=== PATIENT | male | born 1955 | race African-American/Black ===

== ENCOUNTER 2017-04-19 18:22 | Emergency (ER) | payer OTHER ==
[2017-04-19 18:33] VITALS: BP 143/83
--- NOTE | 2017-04-19 19:06 | ER Document Report ---
ED Skin Rash/Insect Bite/Abscs - General Chief Complaint: Insect Bite Stated Complaint: POSSIBLE BUG BITE Time Seen by Provider: 04/19/17 18:49 Notes: 61 yo male c/o possible tick head embedded in posterior right thigh. pt unsure of how long tick was embedded. scratched at tick last night and removed the body, unsure if head still embedded in skin. pt feels well. no fever or flu like symptoms. TRAVEL OUTSIDE OF THE [place] IN LAST 30 DAYS: No - HPI Patient complains to provider of: Tick bite Onset: Yesterday Quality of pain: No pain - Related Data Allergies/Adverse Reactions: No Known Allergies Allergy (Verified 03/17/13 17:48) Past Medical History - General Information source: Patient - Social History Smoking Status: Current Some Day Smoker Chew tobacco use (# tins/day): No Frequency of alcohol use: None Drug Abuse: None Lives with: Family Family History: Reviewed & Not Pertinent, CVA, DM Renal/ Medical History: Denies: Hx Peritoneal Dialysis Musculoskeltal Medical History: Reports Hx Arthritis Past Surgical History: Reports: Hx Tonsillectomy - Immunizations Hx Diphtheria, Pertussis, Tetanus Vaccination: Yes Review of Systems - Review of Systems Constitutional: No symptoms reported EENT: No symptoms reported Cardiovascular: No symptoms reported Respiratory: No symptoms reported Gastrointestinal: No symptoms reported Genitourinary: No symptoms reported Male Genitourinary: No symptoms reported Musculoskeletal: No symptoms reported Skin: See HPI Hematologic/Lymphatic: No symptoms reported Neurological/Psychological: No symptoms reported Physical Exam - Vital signs Vitals: Temp Pulse Resp BP Pulse Ox 98.9 F 89 15 143/83 H 99 04/19/17 18:30 04/19/17 18:30 04/19/17 18:30 04/19/17 18:30 04/19/17 18:30 Interpretation: Normal - General General appearance: Appears well, Alert - HEENT Head: Normocephalic, Atraumatic Eyes: Normal Pupils: PERRL - Respiratory Respiratory status: No respiratory distress Chest status: Nontender Breath sounds: Normal Chest palpation: Normal - Cardiovascular Rhythm: Regular Heart sounds: Normal auscultation Murmur: No - Abdominal Inspection: Normal Distension: No distension Bowel sounds: Normal Tenderness: Nontender Organomegaly: No organomegaly - Back Back: Normal, Nontender - Extremities General upper extremity: Normal inspection, Nontender, Normal color, Normal ROM , Normal temperature General lower extremity: Normal inspection, Nontender, Normal color, Normal ROM , Normal temperature, Normal weight bearing. No: Huber's sign - Neurological Neuro grossly intact: Yes Cognition: Normal Orientation: AAOx4 Manuel Coma Scale Eye Opening: Spontaneous [place] Coma Scale Verbal: Oriented [place] Coma Scale Motor: Obeys Commands [place] Coma Scale Total: 15 Speech: Normal Motor strength normal: LUE, RUE, LLE, RLE Sensory: Normal - Psychological Associated symptoms: Normal affect, Normal mood - Skin Skin Temperature: Warm Skin Moisture: Dry Skin Color: Normal Skin irregularity: Tender indurated area - .5 cm slightly indurated area to right guteal fold. area examined with optivisor glasses and no obvious embedded tick or tick parts identified. area explored with 18g needle. again, no obvious foreign body identified Course - Re-evaluation Re-evalutation: 04/19/17 19:09 I was unable to identify any embedded tick parts. will treat with short course of keflex. pt instructed to f/u with pcm for any signs of infection. pt is afebrile, nontoxic. stable for discharge and agreeable with plan - Vital Signs Vital signs: Temp Pulse Resp BP Pulse Ox 98.9 F 89 15 143/83 H 99 04/19/17 18:30 04/19/17 18:30 04/19/17 18:30 04/19/17 18:30 04/19/17 18:30 Discharge - Discharge Clinical Impression: Tick bite of buttock Qualifiers: Encounter type: initial encounter Qualified Code(s): S30.860A - Insect bite ( nonvenomous) of lower back and pelvis, initial encounter; W57.XXXA - Bitten or stung by nonvenomous insect and other nonvenomous arthropods, initial encounter ; W57.XXXA - Bitten or stung by nonvenomous insect and other nonvenomous arthropods, initial encounter Condition: Stable Disposition: HOME, SELF-CARE Instructions: Tick Bites ([facility]), Antibiotic Therapy ([facility]), Soap Cleansing ([facility]) Additional Instructions: clean area daily with antibacterial soap and water apply bacitracin and bandaid after cleaning oral antibiotic as prescribed follow up with primary care as needed Prescriptions: Cephalexin Monohydrate [Keflex 500 mg Capsule] 500 mg PO QID #20 capsule Ibuprofen [Motrin 800 Mg Tablet] 800 mg PO Q6H #20 tablet
== END 2017-04-19 19:15 | disposition home or self-care (01) ==
LOC: ER 18:22
DX: S30.860A Insect bite (nonvenomous) of lower back and pelvis, initial encounter (principal); W57.XXXA Bitten or stung by nonvenomous insect and other nonvenomous arthropods, initial encounter; F17.200 Nicotine dependence, unspecified, uncomplicated
CPT/HCPCS: 99281

== ENCOUNTER 2017-04-28 23:42 | Emergency (ER) | payer OTHER ==
[2017-04-28] MEDS ORDERED: PANTOPRAZOLE SODIUM 40 MG VIAL IV ONE (23:56)
[2017-04-28] MEDS ORDERED: NORMAL SALINE 500 ML with OCTREOTIDE ACETATE 500 MCG IV PRN ×2 (23:57)
[2017-04-29] MEDS ORDERED: OCTREOTIDE ACETATE INJ/PF 100 MCG/1 ML SDV IV ONE
--- NOTE | 2017-04-29 00:01 | ER Document Report ---
ED General - General Stated Complaint: VOMITING Time Seen by Provider: 04/28/17 23:49 Notes: Patient is 61-year-old male presents with complaint of vomiting blood. He does drink alcohol 3-4 times a week. He did drink tonight. Last night he started to notice black stools. He denies previous history of vomiting blood. He denies a known history of end-stage liver disease. He does not take any blood thinning medications. He has no other complaints at this time. TRAVEL OUTSIDE OF THE [place] IN LAST 30 DAYS: No - Related Data Allergies/Adverse Reactions: No Known Allergies Allergy (Verified 03/17/13 17:48) Past Medical History - Social History Smoking Status: Current Every Day Smoker Frequency of alcohol use: Occasional Drug Abuse: None Family History: Reviewed & Not Pertinent, CVA, DM Renal/ Medical History: Denies: Hx Peritoneal Dialysis Musculoskeltal Medical History: Reports Hx Arthritis Past Surgical History: Reports: Hx Tonsillectomy - Immunizations Hx Diphtheria, Pertussis, Tetanus Vaccination: Yes Review of Systems - Review of Systems Notes: My Normal Review Basic REVIEW OF SYSTEMS: CONSTITUTIONAL : Denies fever, chills, or sweats. Denies recent illness. RESPIRATORY: Denies cough, cold, or chest congestion. Denies shortness of breath, difficulty breathing, or wheezing. GASTROINTESTINAL: Epigastric abdominal pain. Vomiting of blood. Like stools. GENITOURINARY: Denies difficulty urinating, painful urination, burning, frequency, or blood in urine. MUSCULOSKELETAL: Denies neck or back pain or joint pain or swelling. SKIN: Denies rash or skin lesions. HEMATOLOGIC : Denies easy bruising or bleeding. NEUROLOGICAL: Denies altered mental status or loss of consciousness. Denies headache. Denies weakness or paralysis or loss of use of either side. Denies problems with gait or speech. Denies sensory or motor loss. ALL OTHER SYSTEMS REVIEWED AND NEGATIVE. Physical Exam - Vital signs Vitals: Resp BP Pulse Ox 20 115/60 97 04/28/17 23:48 04/28/17 23:48 04/28/17 23:48 - Notes Notes: General Appearance: Well nourished, alert, cooperative, no acute distress, no obvious discomfort. Vitals: reviewed, See vital signs table. Head: no swelling or tenderness to the head Eyes: PERRL, EOMI, Conjuctiva clear Mouth: No decreasd moisture. Her blood around lips from vomiting blood. Throat: No tonsillar inflammation, No airway obstruction, No lymphadenopathy Lungs: No wheezing, No rales, No rhonci, No accessory muscle use, good air exchange bilaterally. Heart: Normal rate, Regular rythm, No murmur, no rub Abdomen: Normal BS, soft, No rigidity, mild epigastric abdominal tenderness to palpation, No guarding, no rebound, no abdominal masses, no organomegaly Extremities: strength 5/5 in all extremities, good pulses in all extremities, no swelling or tenderness in the extremities, no edema. Skin: warm, dry, appropriate color, no rash Neuro: speech clear, oriented x 3, normal affect, responds appropriately to questions. Course - Re-evaluation Re-evalutation: 04/29/17 01:09 Patient is still actively having some hematemesis. Labs have returned. Patient does have some evidence of alcoholic liver disease and INR of 1.3. I have given him with octreotide as well as Protonix. I have discussed with the patient option of transferring. I informed him that I recommend transferring to have no GI coverage here and would be unable to appropriately treat him. He agrees with this. He requests that we call [facility]. I will call [facility] to talk to them about potential transfer. 04/29/17 04:30 Patient had several more episodes of vomiting blood. His vital signs have remained stable despite this. He is receiving blood transfusion. Because of his recurrent hematemesis as well as potential for esophageal varices but there is appropriate to follow him via helicopter aches otherwise [facility] transport was directed to be an hour from 8-10 hours before we can transport him by ground. My concern was that he could have worsening bleeding and we do not have GI here to scope him and potentially band him if that was to occur therefore there transport is more appropriate. I did discuss this with the patient is and they are agreeable to this. Transport has been arranged and they have now just arrived. I did reevaluate the patient he is doing well. Currently still some mild nausea but has not vomited the last 45 minutes. Vital signs remained stable. He is receiving blood. Patient is stable for transport. Dictation of this chart was performed using voice recognition software; therefore, there may be some unintended grammatical errors. - Vital Signs Vital signs: Temp Pulse Resp BP Pulse Ox 99.0 F 19 126/66 H 100 04/29/17 04:26 04/29/17 04:10 04/29/17 04:10 04/29/17 04:10 - Laboratory Result Diagrams: 04/28/17 23:46 04/28/17 23:46 Laboratory results interpreted by me: 04/28/17 04/28/17 04/28/17 23:46 23:46 23:46 RBC 3.52 L Hgb 8.3 L Hct 25.6 L MCV 73 L MCH 23.5 L RDW 19.5 H Monocytes % 16.2 H Absolute Monocytes 1.6 H PT 17.0 H Sodium 145.2 H Total Bilirubin 2.3 H Direct Bilirubin 1.6 H AST 245 H ALT 79 H Albumin 2.8 L Lipase 404.3 H Crossmatch 04/28/17 23:46 RBC Hgb Hct MCV MCH RDW Monocytes % Absolute Monocytes PT Sodium Total Bilirubin Direct Bilirubin AST ALT Albumin Lipase Crossmatch See Detail - EKG Interpretation by Me Additional EKG results interpreted by me: 04/29/17 00:01 EKG is reviewed and interpreted by me. EKG shows normal sinus rhythm with rate of [address] segment elevation or depression. No ischemic T-wave inversions. NE interval, QRS duration are within normal range. QT interval slightly prolonged. Old EKG for comparison is from February 15, 2016. Critical Care Note - Critical Care Note Total time excluding time spent on procedures (mins): 40 Comments: Critical care time for this patient not including time spent on procedures approximately 40 minutes due to frequent re-evaluations, management of upper GI bleed, discussion with transferring hospitalist. Dictation of this chart was performed using voice recognition software; therefore, there may be some unintended grammatical errors.
[2017-04-29 00:04] LABS: ABSOLUTE EOSINOPHILS # (AUTO) 0.1 10^3/uL (0.0-0.6); ABSOLUTE MONOCYTES (AUTO) 1.6 10^3/uL (0.1-1.4); ABSOLUTE NEUT (AUTO) 5.3 10^3/uL (1.7-8.2); BASOPHILS % (AUTO) 0.2 % (0-2); EOSINOPHILS % (AUTO) 0.5 % (0-6); HEMATOCRIT 25.6 % (37.9-51.0); HEMOGLOBIN 8.3 g/dL (13.5-17.0); HGB HCT DIFFERENCE -0.7; LYMPHOCYTES % (AUTO) 30.3 % (13-45); MEAN CORPUSCULAR HEMOGLOBIN 23.5 pg (27.0-33.4); MEAN CORPUSCULAR HGB CONC 32.4 g/dL (32.0-36.0); MEAN CORPUSCULAR VOLUME 73 fl (80-97); MONOCYTES % (AUTO) 16.2 % (3-13); RED BLOOD COUNT 3.52 10^6/uL (4.35-5.55); RED CELL DISTRIBUTION WIDTH 19.5 % (11.5-14.0); SEGMENTED NEUTROPHILS % (AUTO) 52.8 % (42-78)
[2017-04-29 00:11] LABS: PARTIAL THROMBOPLASTIN TIME 27.5 SEC (23.5-35.8)
[2017-04-29 00:19] LABS: ALANINE AMINOTRANSFERASE 79 U/L (21-72); ALBUMIN 2.8 g/dL (3.5-5.0); ALKALINE PHOSPHATASE 82 U/L (38-126); ASPARTATE AMINO TRANSFERASE 245 U/L (17-59); BILIRUBIN,DIRECT 1.6 mg/dL (0.0-0.4); BILIRUBIN,TOTAL 2.3 mg/dL (0.2-1.3); BLOOD UREA NITROGEN 19 mg/dL (7-20); CALCIUM 8.5 mg/dL (8.4-10.2); GLUCOSE 82 mg/dL (75-110); LIPASE 404.3 U/L (23-300); TOTAL PROTEIN 6.6 g/dL (6.3-8.2)
[2017-04-29] MEDS: PANTOPRAZOLE SODIUM 40 MG VIAL IV PRN ×2 (00:26→00:28)
[2017-04-29 00:30] LABS: ANION GAP 19 (5-19)
[2017-04-29 00:40] LABS: CARBON DIOXIDE 22 mmol/L (22-30); CHLORIDE 104 mmol/L (98-107); POTASSIUM 3.9 mmol/L (3.6-5.0); SODIUM 145.2 mmol/L (137-145)
[2017-04-29] MEDS ORDERED: ONDANSETRON HCL INJ/PF 4 MG/2 ML SDV IV ONE (01:02)
[2017-04-29] MEDS ORDERED: NORMAL SALINE 250 ML IV PRN (01:02)
[2017-04-29] MEDS ORDERED: PROMETHAZINE HCL INJ 25 MG/1 ML VIAL IM ONE (01:41)
--- NOTE | 2017-04-29 02:13 | RADIOLOGY REPORT (SQ) ---
EXAM DESCRIPTION: CHEST SINGLE VIEW COMPLETED DATE/TIME: 04/29/2017 2:02 am REASON FOR STUDY: vomiting blood, get full diaphragm in xray COMPARISON: Chest x-ray 05/11/2016. EXAM PARAMETERS: NUMBER OF VIEWS: One view. TECHNIQUE: Single frontal radiographic view of the chest acquired. RADIATION DOSE: NA LIMITATIONS: None. FINDINGS: LUNGS AND PLEURA: No consolidation, pneumothorax or pleural effusion. MEDIASTINUM AND HILAR STRUCTURES: No masses. Contour normal. HEART AND VASCULAR STRUCTURES: Heart normal in size. Normal vasculature. BONES: No acute findings. HARDWARE: None in the chest. IMPRESSION: No acute radiographic finding in the chest. TECHNICAL DOCUMENTATION: JOB ID: [id number]
[2017-04-29 04:14] VITALS: BP 126/66
--- NOTE | 2017-04-29 10:40 | EKG REPORT ---
SEVERITY:- ABNORMAL ECG - SINUS RHYTHM PROLONGED QT INTERVAL : Confirmed by: Glenis Sena MD 29-Apr-2017 10:40:13
== END 2017-04-29 04:50 | disposition short-term general hospital (02) ==
LOC: ER 23:42
DX: K92.2 Gastrointestinal hemorrhage, unspecified (principal); R11.10 Vomiting, unspecified; F17.200 Nicotine dependence, unspecified, uncomplicated
CPT/HCPCS: 93005; 99291; 96372; 96375; 96365; 96366; 86900; 86901; 36415; 36430; 86850; 83690; 85025; 85610; 85730; 80053; 86920; 71010; 93010; P9016; J2354; S0164; J2550; J2405

== ENCOUNTER → 2018-06-27 | Outpatient (CLI) | payer OTHER ==
--- NOTE | 2018-06-27 09:19 | RADIOLOGY REPORT (SQ) ---
EXAM DESCRIPTION: MRI LUMBAR SPINE WITHOUT COMPLETED DATE/TIME: 06/27/2018 8:58 am REASON FOR STUDY: LOW BACK PAIN (M54.5) COMPARISON: None. TECHNIQUE: Sagittal and Axial imaging includes T1, T2, STIR and gradient echo sequences. Coronal T2/ HASTE imaging. LIMITATIONS: None. FINDINGS: VISUALIZED UPPER ABDOMEN: Limited evaluation. No acute or suspicious findings suggested. SEGMENTATION: No transitional anatomy. The lowest well-developed disc space is labeled L5-S1. ALIGNMENT: Slight scoliotic curve. No listhesis. VERTEBRAE: Intact. BONE MARROW: Normal. No marrow replacement or reactive changes. DISC SIGNAL: Mild disc disease of associated signal and height loss, particularly L3-4 and L4-5. POSTERIOR ELEMENTS: No pars defect evident. Fairly mild facet arthropathy without bulky degenerativ e overgrowth. HARDWARE: None in the spine. CORD AND CONUS: Normal in size and signal intensity. Conus at the appropriate level. SOFT TISSUES: No aortic aneurysm seen. No bulky retroperitoneal adenopathy or mass. No paraspinal mas s or fluid. L1-L2: No significant spinal stenosis or exit foraminal stenosis. L2-L3: No significant spinal stenosis or exit foraminal stenosis. L3-L4: Disc bulge mildly flattens the ventral thecal sac. Central annular fissure. Mild facet disea se with posterior ligament thickening. Slight encroachment with lateral recess narrowing. Brought e ccentric left lateral disc bulge with moderate left foraminal stenosis. L4-L5: Posterior ligament thickening. Mild disc bulge. Mild central stenosis. Moderate bilateral f oraminal narrowing. L5-S1: Mild foraminal narrowing. LOWER THORACIC: Incompletely imaged. No stenosis seen. SACRUM: Visualized upper sacrum intact. OTHER: No other significant findings. IMPRESSION: 1. Lumbar spondylosis. Fairly mild central narrowing L3-4 and L4-5. Detailed as above. TECHNICAL DOCUMENTATION: JOB ID: [id number] [employer]- All Rights Reserved Reading location - IP/workstation name: [email or web address]
--- NOTE | 2018-06-27 09:23 | RADIOLOGY REPORT (SQ) ---
EXAM DESCRIPTION: MRI CERVICAL SPINE WITHOUT COMPLETED DATE/TIME: 06/27/2018 8:58 am REASON FOR STUDY: CERVICAL RADICULOPATHY (M54.12) COMPARISON: None. TECHNIQUE: Sagittal and Axial imaging includes T1, T2, STIR and gradient echo sequences. LIMITATIONS: None. FINDINGS: ALIGNMENT: Normal. VERTEBRAE: Intact. BONE MARROW: No marrow edema. No fracture. DISCS: Disc disease at C5-6 and C6-7 particularly. Height and signal loss with disc osteophyte compl exes. HARDWARE: None in the spine. CORD AND BASE OF BRAIN: Normal in size and signal intensity. SOFT TISSUES: No soft tissue masses. C1-C2: No significant spinal stenosis. C2-C3: No significant spinal stenosis or exit foraminal stenosis. C3-C4: No significant spinal stenosis or exit foraminal stenosis. C4-C5: No significant spinal stenosis or exit foraminal stenosis. C5-C6: Disc osteophyte complex effaces the anterior CSF space and contacts the cord without mass effe ct. Uncovertebral spurring with bilateral foraminal stenosis, left greater than right. This looks m oderate -marked overall. C6-C7: Disc osteophyte complex without mass effect on the cord. At least moderate bilateral foramina l stenosis. C7-T1: Broad central minimal protrusion without mass effect on the cord. Bilateral foraminal stenosi s is grossly moderate. UPPER THORACIC: Spondylosis without cord compression. OTHER: No other significant finding. IMPRESSION: 1. Cervical spondylosis which looks most pronounced at C5-6 and C6-7. No miky cord com pression or high-grade central stenosis. TECHNICAL DOCUMENTATION: JOB ID: [id number] [employer]- All Rights Reserved Reading location - IP/workstation name: [email or web address]
== END ==
LOC: RAD 07:25
PROVIDERS: ATTEND Family Medicine
DX: M54.5 Low back pain (principal); M54.12 Radiculopathy, cervical region
CPT/HCPCS: 72141; 72148

== ENCOUNTER 2018-08-06 08:14 | Day surgery (SDC) | payer OTHER ==
[~2018-08-06 08:14] MED LIST: PROPOFOL INJ 200 MG/20 ML VIAL IV ONE
[2018-08-06 10:18] VITALS: BP 157/88
--- NOTE | 2018-08-06 12:50 | Operative Report ---
Operative Report DATE OF SURGERY: 08/06/18 Operative Report: The risks, benefits and alternatives of the procedure including the risk of bleeding, perforation requiring surgery have been explained to the patient in detail and informed consent is obtained. The patient is taken back to the endoscopy suite and placed in the left, lateral decubital position. Timeout was called. Propofol medication is administered. A rectal examination is done which did not reveal any masses, tears or fissures. An Olympus videoscope was introduced into the patient's rectum. The scope was then carefully advanced all the way to the cecum. The cecum was identified by the usual anatomical landmarks including the ileocecal valve as well as the appendiceal office. Photodocumentation is obtained. The scope was then sequentially pulled back via the various segments of the colon including the ascending colon, hepatic flexure, transverse colon, splenic flexure, descending colon and finally into the rectosigmoid portions of the colon. Retroflexion maneuver is performed. PREOPERATIVE DIAGNOSIS: Colorectal cancer screening POSTOPERATIVE DIAGNOSIS: Diverticulosis without any evidence of diverticulitis. Internal hemorrhoids. Mild nonspecific colitis noted on the right-hand side of the colon status post biopsy OPERATION: Colonoscopy with biopsy SURGEON: LANE LANTIGUA ANESTHESIA: LMAC TISSUE REMOVED OR ALTERED: As noted above. COMPLICATIONS: None. ESTIMATED BLOOD LOSS: None. INTRAOPERATIVE FINDINGS: As noted above. PROCEDURE: Patient tolerated procedure well. No immediate postprocedure complications are noted. Patient discharged in good condition. Discharge date 08/06/2018. Discharge diet: Regular. Discharge activity: Regular. 2-3-week follow-up to discuss findings. Patient is instructed to call the office or proceed to the emergency room should there be any further problems or questions. We will wait on the pathology.
== END 2018-08-06 10:25 | disposition home or self-care (01) ==
LOC: END 08:14
PROVIDERS: ATTEND Internal Medicine Gastroenterology
DX: Z12.11 Encounter for screening for malignant neoplasm of colon (principal); K57.30 Diverticulosis of large intestine without perforation or abscess without bleeding; K52.9 Noninfective gastroenteritis and colitis, unspecified; K64.8 Other hemorrhoids; K70.30 Alcoholic cirrhosis of liver without ascites; F17.210 Nicotine dependence, cigarettes, uncomplicated; Z79.899 Other long term (current) drug therapy; I10 Essential (primary) hypertension
CPT/HCPCS: 45378; J2704; 811; G0121